=== PATIENT | female | born 1960 | race Caucasian/White ===

== ENCOUNTER 2017-09-07 00:54 | Emergency (ER) | payer MEDICAID ==
[~2017-09-07] VITALS: Ht 162.6 cm; Wt 76.3 kg
[2017-09-07 00:59] VITALS: Ht 162.6 cm; Wt 76.3 kg
[2017-09-07 02:53] VITALS: BP 139/72
== END 2017-09-07 02:53 | disposition home or self-care (01) ==
LOC: ED 00:54
DX: J20.9 Acute bronchitis, unspecified (principal); F17.210 Nicotine dependence, cigarettes, uncomplicated; I10 Essential (primary) hypertension
CPT/HCPCS: J7620; Q0092